=== PATIENT | male | born 1985 | race African-American/Black ===

== ENCOUNTER 2017-04-18 21:12 | Emergency (ER) | payer MEDICAID, OTHER ==
[~2017-04-18] VITALS: Ht 182.9 cm; Wt 100.0 kg
[~2017-04-18 21:12] MED LIST: AMLO5TAB4 PO; GABA300C PO; HYDR-523 PO; MINE50OI TP; RIVA20TA PO; XAR15 GT
[2017-04-18] MEDS ORDERED: SODIUM CHLORIDE 0.9% 1,000 ML IV ONE (23:01)
[2017-04-18] MEDS ORDERED: ONDANSETRON HCL 4MG/2ML VIAL IV STA (23:01)
[2017-04-18 23:12] LABS: CHLORIDE 104 mEq/L (98-107)
[2017-04-18 23:14] LABS: BASOPHILS % 0.3 % (0.0-2.0); EOSINOPHILS % 1.8 % (0.0-5.0); HEMATOCRIT. 34.5 % (42.0-52.0); HEMOGLOBIN. 11.4 g/dL (14.0-18.0); LYMPHOCYTES % 23.6 % (20.0-50.0); MEAN CORPUSCULAR HEMOGLOBIN 26.3 pg (28.0-32.0); MEAN CORPUSCULAR VOLUME 79.8 fL (80.0-94.0); MONOCYTES % 5.5 % (2.0-8.0); NEUTROPHILS % 68.8 % (40.0-76.0); PLATELET 212 x1000/uL (130-400); RED BLOOD CELL COUNT 4.32 mill/uL (4.7-6.1); RED CELL DISTRIBUTION WIDTH 16.7 % (11.6-14.6)
[2017-04-18 23:21] LABS: CARBON DIOXIDE 23 mEq/L (21-32); ETHANOL BLOOD 155 mg/dL
[2017-04-19 05:39] VITALS: BP 120/74
== END 2017-04-19 05:45 | disposition home or self-care (01) ==
LOC: ER 22:02
DX: F10.129 Alcohol abuse with intoxication, unspecified (principal); Y90.9 Presence of alcohol in blood, level not specified
CPT/HCPCS: 36415; 80053; 85025; 93005; 96361; 96374; 99291; G0482; J2405; J7030; Z7610